=== PATIENT | female | born 2000 | race American Indian/Alaskan Native ===

== ENCOUNTER 2021-07-19 02:19 | Emergency (ER) | payer MEDICAID ==
--- NOTE | 2021-07-19 02:42 | Emergency Department Report ---
ED General Adult HPI - General Chief complaint: Chest Pain Stated complaint: CHEST PAIN/SOB/LOWER ABD PAIN/2 MTHS Time Seen by Provider: 07/19/21 02:36 Source: patient Mode of arrival: Ambulatory Limitations: No Limitations - History of Present Illness Initial comments: 21-year-old female patient (, 2 months gestation) presents to the emergency department with complaints of chest pain, shortness of breath, and abdominal pain. Patient states the chest pain and shortness of breath began approximately 3 days ago. Describes the chest pain as "pressure" without identifiable exacerbating or relieving factors. Abdominal pain is localized to the right lower quadrant. No history of prior abdominal surgeries. Patient has previously undergone an ultrasound and confirmed intrauterine . Denies fever, chills, nausea, vomiting, diarrhea, constipation, vaginal bleeding, loss of vaginal fluid, palpitations, syncope, lower extremity pain/swelling. Denies all other complaints at this time. - Related Data Allergies Allergy/AdvReac Type Severity Reaction Status Date / Time Fish Containing Products Allergy Severe Anaphylaxis Verified 07/19/21 04:08 peanut Allergy Severe Anaphylaxis Verified 07/19/21 04:08 ED Review of Systems ROS: Stated complaint: CHEST PAIN/SOB/LOWER ABD PAIN/2 MTHS Other details as noted in HPI Other: GENERAL: Negative for fever, chills, weight change, anorexia, fatigue. ENT: Negative for ear pain, difficulty hearing, sore throat, nasal congestion, epistaxis. CARDIOVASCULAR: Positive for chest pain PULMONARY: Positive for shortness of breath GASTROINTESTINAL: Positive for abdominal pain MUSCULOSKELETAL: Negative for joint pain, joint swelling, myalgias, back pain, n vamsi pain. NEUROLOGICAL: Negative for headache, seizure, syncope, paresthesias, weakness. INTEGUMENTARY: Negative for erythema, rash, diaphoresis, laceration, ecchymosis. HEMATOLOGICAL: Negative for hemoptysis, hematemesis, hematochezia, hematuria. PSYCHIATRIC: Negative for hallucinations, suicidal ideation, homicidal ideation, anxiety, depression. ED Past Medical Hx - Past Medical History Previous Medical History?: No - Surgical History Past Surgical History?: No ED Physical Exam - General Limitations: No Limitations - Other Other exam information: General: Awake and alert. No acute distress. Head: Atraumatic, normocephalic. Eyes: EOMI. Pupils are equal and round. Normal sclera and conjunctiva. ENT: Oral mucosa is moist. Normal pharyngeal exam. Neck: Supple. No lymphadenopathy. Pulmonary: No respiratory distress. Clear to auscultation bilaterally. Cardiac: Tachycardic. Pulses are palpable and equal bilaterally. No lower extremity cyanosis or edema. Skin: Warm and dry. No rashes. Abdomen: Soft, non-protuberant. Mild right lower quadrant tenderness without guarding, rigidity, or rebound. Bowel sounds are normal. No organomegaly or masses noted. Back: Normal alignment. No CVA tenderness. Extremities: Symmetrical. Full range of motion intact. Neurological: Alert and oriented, appropriately interactive, no focal deficits. Psych: Cooperative. Appropriate mood and affect. Speech is evenly metered. Thoughts are logically construed. ED Course Vital Signs 07/19/21 07/19/21 02:23 04:19 Temperature 98.1 F Pulse Rate 111 H Respiratory 18 18 Rate Blood Pressure 142/82 O2 Sat by Pulse 97 Oximetry ED Medical Decision Making - Lab Data Result diagrams: 07/19/21 02:46 07/19/21 02:46 - EKG Data 07/19/21 04:07 EKG shows normal sinus rhythm with a ventricular rate of 94 bpm. Normal axis. Normal IL interval. Normal QT interval. Good R wave progression. No ST segment changes. No evidence to suggest right heart strain. Over read by attending emergency physician, who agrees with this interpretation. - Medical Decision Making Differential diagnosis including but not limited to: appendicitis, ovarian cyst/torsion, ectopic , pelvic inflammatory disease, acute coronary syndrome, pericarditis, pericardial effusion/cardiac tamponade, pulmonary embolism, pneumonia, cardiomyopathy On reevaluation, patient remains stable. No hypoxia, no respiratory distress. Repeat abdominal exam is benign. She is afebrile. There is no leukocytosis. Patient has no nausea and no vomiting. Tachycardia resolved after IV fluids and Tylenol. Heart rate 94 bpm on EKG. Troponin BNP within normal limits and EKG without evidence of right heart strain suggestive of pulmonary embolism. Labs show mild dehydration. Urinalysis without evidence of infection. Ultrasound shows intrauterine approximately 9 weeks gestation with normal heart tones. Risks and benefits of radiation exposure were discussed with the patient, who politely refused all further imaging. Patient understands that diagnoses such as appendicitis, pulmonary embolism, and pneumonia cannot be definitively ruled out without additional imaging studies. Patient expressed understanding and continues to express a preference for foregoing imaging. Patient will be discharged home to follow-up with her nps this week. Patient expressed understanding and is agreeable to plan of care. Strict return precautions provided. Repeat exam is unremarkable and benign. History, exam, diagnostic testing, and current condition do not suggest worrisome pathology to warrant further testing, continued ED treatment, admission, or surgical evaluation at this point. Given the low probability of a significant medical illness, it would be more likely to result in harm than benefit to perform further testing at this stage. Discussed findings, presumptive diagnosis, need for follow-up and specific signs/symptoms that should prompt immediate return to the emergency department. Instructions were explained in detail to the patient in addition to giving written discharge information. Patient expressed understanding and was given the opportunity to ask questions, all of which were satisfactorily answered prior to discharge home. Case discussed with Dr. Rivera, attending emergency physician, who agrees with diagnostic work-up/plan of care. Critical care attestation.: If time is entered above; I have spent that time in minutes in the direct care of this critically ill patient, excluding procedure time. ED Disposition Clinical Impression: Dehydration during Disposition: 01 HOME / SELF CARE / HOMELESS Is pt being admited?: No Does the pt Need Aspirin: No Condition: Stable Instructions: Dehydration, Adult, [id number] Additional Instructions: Take Tylenol every 4 hours as needed for pain. Rest. Drink plenty of fluids. Gradually advance physical activity slowly as tolerated. Follow-up with nps this week. Call today to schedule an appointment. Return to the emergency department immediately for new or worsening symptoms. Specifically, return to the emergency department immediately for worsening chest pain, difficulty breathing, palpitations, leg pain, leg swelling, fever, cough, wheezing, vomiting, vaginal bleeding, loss of vaginal fluid, loss of appetite, or any other concerns. Referrals: [facility] [Provider Group] - 3-5 Days Time of Disposition: 06:18
[2021-07-19] MEDS ORDERED: ACETAMINOPHEN 500 MG TAB PO ONE (02:53)
[2021-07-19] MEDS ORDERED: SODIUM CHLORIDE 0.9% 1000 ML 1,000 ML IV ONE (02:53)
[2021-07-19 03:18] LABS: Basophils % (Auto) 0.3 % (0.0-1.8); Eosinophils # (Auto) 0.1 K/mm3 (0.0-0.4); Eosinophils % (Auto) 1.2 % (0.0-4.3); Hematocrit 38.9 % (30.3-42.9); Hemoglobin 13.2 gm/dl (10.1-14.3); Lymphocytes % (Auto) 22.6 % (13.4-35.0); Mean Corpuscular HGB Conc 34 % (30-34); Mean Corpuscular Volume 90 fl (79-97); Monocytes # (Auto) 0.4 K/mm3 (0.0-0.8); Monocytes % (Auto) 4.4 % (0.0-7.3); Platelet Count 200 K/mm3 (140-440); Red Blood Count 4.34 M/mm3 (3.65-5.03)
[2021-07-19 03:24] LABS: Alanine Aminotransferase 11 units/L (7-56); Albumin 4.1 g/dL (3.9-5); BUN/Creatinine Ratio 18; Blood Urea Nitrogen 11 mg/dL (7-17); Calcium 9.6 mg/dL (8.4-10.2); Hemolysis Index 2
--- NOTE | 2021-07-19 04:24 | Ultrasound Report ---
ULTRASOUND OBSTETRIC INDICATION / CLINICAL INFORMATION: RLQ abdominal pain. Clinical Gestational Age (GA) in weeks, days: 10, 0 TECHNIQUE: Transabdominal and Transvaginal. COMPARISON: None available. FINDINGS: GESTATIONAL SAC: Well-defined oval shape and intrauterine in location. YOLK SAC: No significant abnormality. EMBRYO/FETUS: No significant abnormality. - [place]-Rump Length = 3.1 cm = 10, 0 weeks, days - Heart Rate, beats per minute (if present) = 177 ADNEXA: No significant abnormality. FREE FLUID: None. ADDITIONAL FINDINGS: None. IMPRESSION: 1. Single, living intrauterine with estimated sonographic age of 9, 6 weeks, days. h eart tones are noted at 127 bpm. Signer Name: Barry Baird DO Signed: 07/19/2021 4:19 AM Workstation Name: [id number]
--- NOTE | 2021-07-19 04:24 | Ultrasound Report ---
ULTRASOUND OBSTETRIC INDICATION / CLINICAL INFORMATION: RLQ abdominal pain. Clinical Gestational Age (GA) in weeks, days: 10, 0 TECHNIQUE: Transabdominal and Transvaginal. COMPARISON: None available. FINDINGS: GESTATIONAL SAC: Well-defined oval shape and intrauterine in location. YOLK SAC: No significant abnormality. EMBRYO/FETUS: No significant abnormality. - [place]-Rump Length = 3.1 cm = 10, 0 weeks, days - Heart Rate, beats per minute (if present) = 177 ADNEXA: No significant abnormality. FREE FLUID: None. ADDITIONAL FINDINGS: None. IMPRESSION: 1. Single, living intrauterine with estimated sonographic age of 9, 6 weeks, days. h eart tones are noted at 127 bpm. Signer Name: Barry Baird DO Signed: 07/19/2021 4:19 AM Workstation Name: [id number]
[2021-07-19 06:03] LABS: Bilirubin,Urine NEG (Negative); Blood,Urine NEG (Negative); Color,Urine Yellow (Yellow); Mucus,Urine FEW /HPF; Protein,Urine <15 mg/dL mg/dL (Negative); Urobilinogen,Urine < 2.0 mg/dL (<2.0)
[2021-07-19 07:28] VITALS: BP 133/70
--- NOTE | 2021-07-19 09:19 | Electrocardiograph Report ---
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
== END 2021-07-19 06:30 | disposition home or self-care (01) ==
LOC: ED 02:19
DX: O26.891 Other specified pregnancy related conditions, first trimester (principal); O99.511 Diseases of the respiratory system complicating pregnancy, first trimester; R06.02 Shortness of breath; R10.9 Unspecified abdominal pain; E86.0 Dehydration; R07.9 Chest pain, unspecified; Z91.010 Allergy to peanuts; Z91.013 Allergy to seafood; R10.31 Right lower quadrant pain; Z3A.09 9 weeks gestation of pregnancy
CPT/HCPCS: 36415; 76801; 76817; 80053; 81001; 83735; 83880; 84484; 85025; 93005; 96360; 99284; J7030

== ENCOUNTER 2021-08-12 17:59 | Emergency (ER) | payer MEDICAID ==
--- NOTE | 2021-08-12 19:21 | Emergency Department Report ---
ED HPI - General Chief complaint: Vaginal Bleeding Stated complaint: 13 wks -vaginal bleeding Time Seen by Provider: 08/12/21 19:14 Source: patient Mode of arrival: Ambulatory Limitations: No Limitations - History of Present Illness Initial comments: 21-year-old female who about 13 weeks presents to the ER today with complaints of vaginal spotting. Patient states that symptoms started today after having sexual intercourse. She states that she has not had to use a pad or panty liner or tampons. She reports low back pain but denies any abdominal pain or pelvic pain. She denies any UTI symptoms. She denies any changes in her stool. She is G1, P0 AB 0. She did have a OB ultrasound done when she was about 7 weeks which confirmed an IUP. [facility]ZER is at my [facility]. Complaint: vaginal bleeding -: Sudden - Related Data Allergies Allergy/AdvReac Type Severity Reaction Status Date / Time Fish Containing Products Allergy Severe Anaphylaxis Verified 08/12/21 18:08 peanut Allergy Severe Anaphylaxis Verified 08/12/21 18:08 ED Review of Systems ROS: Stated complaint: 13 wks -vaginal bleeding Other details as noted in HPI Comment: All other systems reviewed and negative Genitourinary: other (vaginal bleeding ) Musculoskeletal: back pain ED Physical Exam - General Limitations: No Limitations General appearance: alert, in no apparent distress - Head Head exam: Present: atraumatic, normocephalic, normal inspection - Eye Eye exam: Present: normal appearance, PERRL, EOMI Pupils: Present: normal accommodation - ENT ENT exam: Present: normal exam, mucous membranes moist, TM's normal bilaterally - Neck Neck exam: Present: normal inspection, full ROM. Absent: meningismus - Respiratory Respiratory exam: Present: normal lung sounds bilaterally. Absent: respiratory distress, wheezes, rales, rhonchi, stridor - Cardiovascular Cardiovascular Exam: Present: regular rate, normal rhythm, normal heart sounds - GI/Abdominal GI/Abdominal exam: Present: soft. Absent: distended, tenderness, guarding, rebound - Neurological Exam Neurological exam: Present: alert, oriented X3, CN II-XII intact, normal gait - Psychiatric Psychiatric exam: Present: normal affect, normal mood - Skin Skin exam: Present: intact ED Course Vital Signs 08/12/21 08/12/21 18:06 22:08 Temperature 97.8 F 98.0 F Pulse Rate 99 H 81 Respiratory 16 17 Rate Blood Pressure 123/65 116/69 [Right] O2 Sat by Pulse 99 98 Oximetry ED Medical Decision Making - Lab Data Result diagrams: 08/12/21 19:23 - Radiology Data Radiology results: report reviewed Patient: ROBBIE BHATTI MR#: [id number] : 2000 Acct:[id number] Age/Sex: 21 / F ADM Date: 08/12/21 Loc: ED Attending Dr: Ordering Physician: KAREL LAGUERRE Date of Service: 08/12/21 Procedure(s): US OB <= 14 weeks fetus Accession Number(s): [id number] cc: KAREL LAGUERRE ULTRASOUND OBSTETRIC INDICATION / CLINICAL INFORMATION: vaginal spotting/ 13 weeks preg. TECHNIQUE: Transabdominal. COMPARISON: None available. FINDINGS: GESTATIONAL SAC: Well-defined oval shape and intrauterine in location. YOLK SAC: No significant abnormality. EMBRYO/FETUS: No significant abnormality. - [place]-Rump Length = 7.9 cm = 13 weeks, 6 day(s). - Heart Rate, beats per minute (if present) = 156 ADNEXA: Right ovary not visualized sonographically. Left ovary within normal limits FREE FLUID: None. ADDITIONAL FINDINGS: None. IMPRESSION: 1. Single, living intrauterine with estimated sonographic age of 13 weeks, 6 day(s). Signer Name: Darius Toledo MD Signed: 08/12/2021 9:04 PM Workstation Name: [id number] Transcribed By: TL Dictated By: Darius Toledo MD Electronically Authenticated By: Darius Toledo MD Signed Date/Time: 08/12/212103 DD/ 02 TD/TT: - Medical Decision Making CBC unremarkable. Urinalysis does [place] [address]. Rh is O+ and therefore no indication for RhoGam at this time. OB ultrasound shows Single, living intrauterine with estimated sonographic age of 13 weeks, 6 day(s). Patient currently resting comfortably. She is not in any significant distress. She is not toxic or ill-appearing. She has a nonsurgical abdominal exam. She is neurologically intact with a normal gait. Her vital signs have been stable. Suspect threatened miscarriage at this time. Discussed all results as well as suspected diagnosis and treatment plan with patient. Recommend no sexual intercourse until follow-up with HAND [facility]. Recommend Tylenol as needed for pain. Patient expressed understanding for instructions and agree with plan. Patient was stable at time of discharge. Critical care attestation.: If time is entered above; I have spent that time in minutes in the direct care of this critically ill patient, excluding procedure time. ED Disposition Clinical Impression: Threatened miscarriage Disposition: 01 HOME / SELF CARE / HOMELESS Is pt being admited?: No Does the pt Need Aspirin: No Condition: Stable Instructions: Threatened Miscarriage, [id number] Additional Instructions: I recommend no sexual intercourse until informed by [facility]. I do recommend that you follow-up with your HAND SIZER either this week or next week for follow-up. Return to the ER if your symptoms worsens or changes in any way. Referrals: CEASAR RICO MD [Primary Care Provider] - 3-5 Days Forms: Work/School Release Form(ED) Time of Disposition: 21:39
[2021-08-12 19:53] LABS: Basophils # (Auto) 0.1 K/mm3 (0.0-0.1); Basophils % (Auto) 1.4 % (0.0-1.8); Eosinophils # (Auto) 0.1 K/mm3 (0.0-0.4); Eosinophils % (Auto) 1.2 % (0.0-4.3); Hematocrit 38.2 % (30.3-42.9); Hemoglobin 12.8 gm/dl (10.1-14.3); Lymphocytes # (Auto) 1.5 K/mm3 (1.2-5.4); Lymphocytes % (Auto) 19.1 % (13.4-35.0); Mean Corpuscular HGB Conc 34 % (30-34); Mean Corpuscular Volume 89 fl (79-97); Monocytes # (Auto) 0.4 K/mm3 (0.0-0.8); Monocytes % (Auto) 4.9 % (0.0-7.3); Platelet Count 195 K/mm3 (140-440); Red Blood Count 4.28 M/mm3 (3.65-5.03); Red Cell Distribution Width 13.1 % (13.2-15.2)
--- NOTE | 2021-08-12 21:08 | Ultrasound Report ---
ULTRASOUND OBSTETRIC INDICATION / CLINICAL INFORMATION: vaginal spotting/ 13 weeks preg. TECHNIQUE: Transabdominal. COMPARISON: None available. FINDINGS: GESTATIONAL SAC: Well-defined oval shape and intrauterine in location. YOLK SAC: No significant abnormality. EMBRYO/FETUS: No significant abnormality. - [place]-Rump Length = 7.9 cm = 13 weeks, 6 day(s). - Heart Rate, beats per minute (if present) = 156 ADNEXA: Right ovary not visualized sonographically. Left ovary within normal limits FREE FLUID: None. ADDITIONAL FINDINGS: None. IMPRESSION: 1. Single, living intrauterine with estimated sonographic age of 13 weeks, 6 day(s). Signer Name: Darius Toledo MD Signed: 08/12/2021 9:04 PM Workstation Name: [id number]
[2021-08-12 22:09] VITALS: BP 116/69
[2021-08-12 22:11] LABS: Bacteria,Urine 1+ /HPF (Negative); Bilirubin,Urine NEG (Negative); Blood,Urine NEG (Negative); Color,Urine Yellow (Yellow); Mucus,Urine FEW /HPF; Urobilinogen,Urine < 2.0 mg/dL (<2.0)
== END 2021-08-12 22:07 | disposition home or self-care (01) ==
LOC: ED 17:59
DX: O20.0 Threatened abortion (principal); O26.851 Spotting complicating pregnancy, first trimester; Z3A.13 13 weeks gestation of pregnancy
CPT/HCPCS: 36415; 76801; 81001; 84702; 84703; 85025; 86900; 86901; 99284